=== PATIENT | female | born 1965 | race Two or more races ===

== ENCOUNTER 2016-10-26 08:36 | Day surgery (SDC) | payer OTHER ==
[~2016-10-26 08:36] MED LIST: Dexamethasone IV* 4 MG/ML 1 ML (4 MG) IV SLOW PU ONE; Famotidine IV* 10 MG/ML 2 ML (20 mg) IV ONE
[2016-10-26] MEDS ORDERED: Dexamethasone IV* 4 MG/ML 1 ML (4 MG) ONE (08:45)
[2016-10-26] MEDS ORDERED: Famotidine IV* 10 MG/ML 2 ML (20 mg) ONE (08:45)
[2016-10-26] MEDS ORDERED: Buffered Lidocaine 1% SYRIN* 5 ML/SYR SYRINGE ONE (08:46)
[2016-10-26] MEDS ORDERED: EPINEPHrine AMP 1 MG/ML ONE (10:37)
[2016-10-26] MEDS ORDERED: Oxymetazoline 0.05% NASAL SPR* 15 ML BTL ONE (10:37)
[2016-10-26] MEDS ORDERED: Lidocaine 4% TOPICAL* 50 ML TOP.SOLN ONE (10:37)
[2016-10-26] MEDS ORDERED: Methylene Blue 0.5 %* 50 MG/10 ML AMP IV ONE (10:38)
[2016-10-26] MEDS ORDERED: Succinylcholine* 20 MG/ML 10 ML VIAL ONE (11:16)
[2016-10-26] MEDS ORDERED: Lidocaine 2% PF * 5 ML VIAL ONE (11:16)
[2016-10-26] MEDS ORDERED: Propofol* 10 MG/ML 20 ML BTL IV PUSH ONE (11:16)
[2016-10-26] MEDS ORDERED: fentaNYL* 50 MCG/ML 2 ML VIAL (100 MCG VIAL) ONE ×2 (11:17→11:48)
[2016-10-26] MEDS ORDERED: Midazolam* 1 MG/ML 2 ML VIAL (2 MG) ONE (11:17)
[2016-10-26] MEDS ORDERED: HYDROcodone/ACETAMIN 5-325 MG* 1 TAB PO PRN (11:21)
[2016-10-26] MEDS ORDERED: fentaNYL* 50 MCG/ML 2 ML VIAL (100 MCG VIAL) IV PRN (11:21)
[2016-10-26] MEDS ORDERED: PROCHLORPERAZINE INJ 5 MG/ML 2 ML VIAL IV PRN (11:21)
[2016-10-26] MEDS ORDERED: Ketorolac INJ* 30 MG/ML 1 ML VIAL IV PRN (11:21)
[2016-10-26] MEDS ORDERED: oxyCODONE/Acetamin 5/325 MG* TAB PO PRN (11:21)
[2016-10-26] MEDS ORDERED: Ondansetron INJ* 2 MG/ML VIAL ONE (11:53)
[2016-10-26 13:02] VITALS: BP 130/79
--- NOTE | 2016-10-27 01:25 | OP ---
DATE OF OPERATION: 10/26/16 - [facility] DATE OF : 61 SURGEON: Imtiaz Gomez MD ANESTHESIOLOGIST: Ayah Wayne MD ANESTHESIA: General endotracheal anesthesia with a laser-safe tube. PRE-OP DIAGNOSIS: Neoplasm, vocal cord, behavior undetermined. POST-OP DIAGNOSIS: Neoplasm, vocal cord, behavior undetermined. However, they looked like benign polyps. OPERATIVE PROCEDURE: Microlaryngoscopy with excision of both bilateral vocal cord masses followed by CO2 laser ablation on their bases SPECIMENS: Bilateral vocal cord masses. DESCRIPTION OF PROCEDURE: The patient was taken to the operating room and placed in the supine position on the operating table. General anesthesia was induced and she was orotracheally intubated with a laser-safe tube. During the procedure, wet towels and the were used. She was turned and draped for the surgery. Laryngoscope was inserted, suspended from the suspension system. Microscope brought in. She had some polypoid masses on her anterior vocal cords just posterior to the anterior commissure and these appeared to be polypoid and consistent with polypoid degeneration or smokers polyps and not squamous cell carcinoma. I used pledgets impregnated with oxymetazoline and 4% lidocaine to anesthetize the area. Using cup biopsy forceps, was debrided , I then used the CO2 laser at power setting of 4 to ablate the bases bilaterally. The patient tolerated this well. No complications. He was extubated uneventfully. [id number] #: [id number] MTDD
== END 2016-10-26 13:30 | disposition home or self-care (01) ==
LOC: OR 08:36
PROVIDERS: ATTEND Otolaryngology
DX: J38.1 Polyp of vocal cord and larynx (principal); F17.210 Nicotine dependence, cigarettes, uncomplicated; R00.1 Bradycardia, unspecified
CPT/HCPCS: 88305; A9270-GY; J0171; J0330; J1100; J2250; J2405; J2704; J3010

== ENCOUNTER 2017-08-26 17:04 | Emergency (ER) | payer OTHER ==
[2017-08-26] MEDS ORDERED: LORazepam TAB(*) 1 MG PO ONE ×2 (17:55→18:15)
[2017-08-26 17:58] LABS: Urine Appearance Clear; Urine Blood 1+ (Negative); Urine Color Colorless; Urine Ketones Negative (Negative); Urine Protein Negative (Negative); Urine Specific Gravity 1.003 (1.010-1.030); Urine Urobilinogen Negative (Negative)
[2017-08-26 18:06] LABS: ABS Basophils 0.1 10^3/ul (0-0.2); ABS Eosinophils 0.2 10^3/ul (0-0.6); ABS Lymphocytes 4.2 10^3/ul (1.0-4.8); ABS Monocytes 0.6 10^3/ul (0-0.8); ABS Neutrophils 4.6 10^3/ul (1.5-7.7); ABS Nucleated RBC 0 10^3/ul; Eosinophil % 1.8 % (0-6); Hematocrit 42 % (35-47); Hemoglobin 14.8 g/dl (12.0-16.0); Lymphocyte % 43.9 % (25-47); Mean Corpuscular HGB Conc 35 g/dl (31-36); Mean Corpuscular Hemoglobin 34 pg (27-31); Mean Corpuscular Volume 96 fL (80-97); Mean Platelet Volume 7 um3 (7.4-10.4); Nucleated Red Blood Cells % 0.1; Platelet Count 282 10^3/ul (150-450); Red Cell Distribution Width 14 % (10.5-15); White Blood Count 9.6 10^3/ul (3.5-10.8)
[2017-08-26] MEDS ORDERED: LORazepam TAB(*) 1 MG ONE (18:13)
[2017-08-26 18:22] LABS: EGFR Non-African American 95.3 (>60)
--- NOTE | 2017-08-26 19:38 | ED ---
Tonny Rivas Angela, scribed for Iggy Whiting MD on 08/26/17 at 1736 . Psychiatric Complaint - HPI Summary HPI Summary: Pt is a 51 y/o female presenting to [facility] via police officers for a 9.41. Pt was brought by the special deputy sheriff for alcohol intoxication and voicing suicidal ideation thoughts. When asked why the pt is here, she states "I can't take it anymore." Pt has hx of chronic alcohol use. Per nurse's note, pt admits to drinking 1-2 pints of Vodka and drinking beer. Patient called 911 indicating to them she does not want to live anymore. HPI IS LIMITED DUE TO LEVEL 5 CAVEAT - alcohol intoxication. - History Of Current Complaint Time Seen by Provider: 08/26/17 17:16 Hx Obtained From: Patient, Other: - Police Hx From Patient Unobtainable Due To: Other - level 5 caveat - alcohol intoxication Onset/Duration: Lasting Days, Still Present Timing: Days Severity Currently: Severe Character: Depressed Aggravating Factor(s): Alcohol Use Alleviating Factor(s): Nothing Associated Signs And Symptoms: Positive: Confused Has Suicidal: Reports: Thoughts - Allergies/Home Medications Allergies/Adverse Reactions: Allergies Allergy/AdvReac Type Severity Reaction Status Date / Time Penicillins Allergy Difficulty Verified 08/26/17 17:19 Breathing/Wheezing Home Medications: Home Medications Mometasone/Formoter 200/5 MDI* [Dulera 200/5 MDI*] 2 puff INH BID 08/26/17 [ History Confirmed 08/26/17] PMH/Surg Hx/FS Hx/Imm Hx Cardiovascular History: Reports: Other Cardiovascular Problems/Disorders - occassion bradycardic high 40's Respiratory History: Reports: Hx Chronic Obstructive Pulmonary Disease (COPD) - albuterol inhaler use rarely used Musculoskeletal History: Reports: Hx Arthritis - left ankle from previous injury Sensory History: Reports: Hx Contacts or Glasses Denies: Hx Hearing Aid Opthamlomology History: Reports: Hx Contacts or Glasses Psychiatric History: Reports: Hx Anxiety, Hx Depression - Surgical History Surgery Procedure, Year, and Place: left ankle surgery 9 years ago. polyps removed from throat many years ago. tubal ligation Hx Anesthesia Reactions: No Infectious Disease History: No Infectious Disease History: Denies: Traveled Outside the [place] in Last 30 Days - Family History Known Family History: Positive: Unknown - due to level 5 caveat - alcohol intoxication - Social History Alcohol Use: Daily Substance Use Type: Reports: None, Marijuana Smoking Status (MU): Heavy Every Day Tobacco Smoker Type: Cigarettes Amount Used/How Often: 1/2 ppd smoked for 35 years Review of Systems - ROS Summary Review of Systems Summary: ROS IS LIMITED DUE TO LEVEL 5 CAVEAT - pt is intoxicated with alcohol Constitutional: Other - pt is intoxicated with alcohol Negative: Fever Psychological: Other - SI All Other Systems Reviewed And Are Negative: No Physical Exam - Summary Physical Exam Summary: General: well-appearing, no pain distress Skin: warm, color reflects adequate perfusion, dry Head: normal Eyes: EOMI, NEELA ENT: normal Neck: supple, nontender Respiratory: CTA, breath sounds present Cardiovascular: RRR Abdomen: soft, nontender Bowel: present Musculoskeletal: normal, strength/ROM intact Neurological: normal, sensory/motor intact, A&O x3 Psychological: affect/mood appropriate Triage Information Reviewed: Yes Vital Signs On Initial Exam: Initial Vitals Temp Pulse Resp BP Pulse Ox 98.2 F 92 17 119/50 96 08/26/17 17:13 08/26/17 17:13 08/26/17 17:13 08/26/17 17:13 08/26/17 17:13 Vital Signs Reviewed: Yes Completion Of Physical Exam Limited Due To: Level 5 - due to alcohol intoxication Diagnostics - Vital Signs Vital Signs Temp Pulse Resp BP Pulse Ox 08/26/17 17:13 98.2 F 92 17 119/50 96 - Laboratory Lab Results: Lab Results 08/26/17 08/26/17 08/26/17 Range/Units 17:30 17:59 17:59 WBC 9.6 (3.5-10.8) 10^3/ul RBC 4.40 (4.0-5.4) 10^6/ul Hgb 14.8 (12.0-16.0) g/dl Hct 42 (35-47) % MCV 96 (80-97) fL MCH 34 H (27-31) pg MCHC 35 (31-36) g/dl RDW 14 (10.5-15) % Plt Count 282 (150-450) 10^3/ul MPV 7 L (7.4-10.4) um3 Neut % (Auto) 47.5 (38-83) % Lymph % (Auto) 43.9 (25-47) % [place] % (Auto) 6.1 (0-7) % Eos % (Auto) 1.8 (0-6) % Baso % (Auto) 0.7 (0-2) % Absolute Neuts (auto) 4.6 (1.5-7.7) 10^3/ul Absolute Lymphs (auto) 4.2 (1.0-4.8) 10^3/ul Absolute Monos (auto) 0.6 (0-0.8) 10^3/ul Absolute Eos (auto) 0.2 (0-0.6) 10^3/ul Absolute Basos (auto) 0.1 (0-0.2) 10^3/ul Absolute Nucleated RBC 0 10^3/ul Nucleated RBC % 0.1 Sodium 142 (133-145) mmol/L Potassium 3.6 (3.5-5.0) mmol/L Chloride 110 (101-111) mmol/L Carbon Dioxide 23 (22-32) mmol/L Anion Gap 9 (2-11) mmol/L BUN 11 (6-24) mg/dL Creatinine 0.65 (0.51-0.95) mg/dL Est GFR ( Amer) 122.6 (>60) Est GFR (Non-Af Amer) 95.3 (>60) BUN/Creatinine Ratio 16.9 (8-20) Glucose 85 (70-100) mg/dL Calcium 9.1 (8.6-10.3) mg/dL Total Bilirubin 0.40 (0.2-1.0) mg/dL AST 63 H (13-39) U/L ALT 76 H (7-52) U/L Alkaline Phosphatase 85 (34-104) U/L Total Protein 7.4 (6.4-8.9) g/dL Albumin 4.3 (3.2-5.2) g/dL Globulin 3.1 (2-4) g/dL Albumin/Globulin Ratio 1.4 (1-3) TSH 1.15 (0.34-5.60) mcIU/mL Urine Color Colorless Urine Appearance Clear Urine pH 5.0 (5-9) Ur Specific [place] 1.003 L (1.010-1.030) Urine Protein Negative (Negative) Urine Ketones Negative (Negative) Urine Blood 1+ A (Negative) Urine Nitrate Negative (Negative) Urine Bilirubin Negative (Negative) Urine Urobilinogen Negative (Negative) Ur Leukocyte Esterase Negative (Negative) Urine WBC (Auto) Trace(0-5/hpf) (Absent) Urine RBC (Auto) Trace(0-2/hpf) (Absent) Ur Squamous Epith Cells Present A (Absent) Urine Bacteria Absent (Absent) Urine Glucose Negative (Negative) Salicylates < 2.50 (<30) mg/dL Acetaminophen < 15 mcg/mL Serum Alcohol 398 H (<10) mg/dL Result Diagrams: 08/26/17 17:59 08/26/17 17:59 Lab Statement: Any lab studies that have been ordered have been reviewed, and results considered in the medical decision making process. Course/Dx - Course Course Of Treatment: Medications reviewed. Allergies noted. Test results show serum alcohol of 398. Pt is awaiting alcohol metabolism and medical clearance for MHE. Pt will be signed out to Dr. Calabrese, pending disposition, awaiting medical clearance and MHE. - Differential Dx/Clinical Impression Provider Diagnosis: Mental health problem, Acute alcohol intoxication Discharge - Discharge Plan Condition: Stable Disposition: OTHER Discharge Disposition Comment: signed out to Dr. Calabrese, pending dispo, awaiting alcohol metabolism and MHE Referrals: Johan Thornton MD [Primary Care Provider] - The documentation as recorded by the Tonny justice Angela accurately reflects the service I personally performed and the decisions made by me, Iggy Whiting MD.
[2017-08-27 05:23] VITALS: BP 122/59
== END 2017-08-27 09:22 ==
LOC: ED 17:04
DX: R45.851 Suicidal ideations (principal); F10.121 Alcohol abuse with intoxication delirium; Y90.8 Blood alcohol level of 240 mg/100 ml or more; J44.9 Chronic obstructive pulmonary disease, unspecified; F41.9 Anxiety disorder, unspecified; F32.9 Major depressive disorder, single episode, unspecified; Z88.0 Allergy status to penicillin; F17.210 Nicotine dependence, cigarettes, uncomplicated
CPT/HCPCS: 36415; 80053; 80320; 80329; 80346; 81003; 81015; 84443; 85025; 87086; 99283; A9270-GY; G0480